=== PATIENT | male | born 1965 | race Caucasian/White ===

== ENCOUNTER 2017-08-09 17:46 | Emergency (ER) | payer SELFPAY ==
[~2017-08-09] VITALS: Ht 195.6 cm; Wt 100.0 kg
[2017-08-09 17:49] VITALS: BP 164/99
== END 2017-08-09 23:00 | disposition left against medical advice (07) ==
LOC: ER 17:46
DX: S61.210A Laceration without foreign body of right index finger without damage to nail, initial encounter (principal); S61.001A Unspecified open wound of right thumb without damage to nail, initial encounter; W45.8XXA Other foreign body or object entering through skin, initial encounter; Y93.89 Activity, other specified; Y92.89 Other specified places as the place of occurrence of the external cause; Y99.8 Other external cause status
CPT/HCPCS: 99281